=== PATIENT | female | born 1935 | race Caucasian/White ===

== ENCOUNTER 2022-03-24 12:52 | Outpatient (RCR) | payer MEDICARE, SELFPAY | END 2022-05-09 10:29 | disposition home or self-care (01) | LOC: PT.CARL 12:52 | PROVIDERS: Visit Provider Family Medicine | DX: M06.9 Rheumatoid arthritis, unspecified (principal); R27.0 Ataxia, unspecified | CPT/HCPCS: 97110; 97112; 97163 ==

== ENCOUNTER 2023-09-19 13:12 | Outpatient (CLI) | payer MEDICARE, SELFPAY ==
[2023-09-19] MEDS: ABATACEPT IV (13:48)
[2023-09-19] MEDS: SODIUM CHLORIDE 0.9% IV (13:48)
[2023-09-19] MEDS: SODIUM CHLORIDE 0.9% 50ML BAG 50 ML IV (13:48)
[2023-09-19] MEDS: MALTOSE IV (13:48)
[2023-09-19 13:50] VITALS: BP 164/73; PULSE 76; O2SAT 99
[2023-09-19 14:25] VITALS: BP 184/76; PULSE 72
== END 2023-09-19 14:30 | disposition home or self-care (01) ==
LOC: INF 13:13
PROVIDERS: PCP Family Medicine; Visit Provider Internal Medicine
DX: M05.9 Rheumatoid arthritis with rheumatoid factor, unspecified (principal)
CPT/HCPCS: 96365; J0129

== ENCOUNTER 2023-11-13 10:51 | Outpatient (CLI) | payer MEDICARE, SELFPAY ==
[2023-11-13] MEDS: SODIUM CHLORIDE 0.9% IV (11:22)
[2023-11-13] MEDS: SODIUM CHLORIDE 0.9% 50ML BAG 50 ML IV (11:22)
[2023-11-13] MEDS: MALTOSE IV (11:22)
[2023-11-13] MEDS: ABATACEPT IV (11:22)
[2023-11-13 11:27] VITALS: BP 170/76; PULSE 69; RESP 18; O2SAT 97
[2023-11-13 12:20] VITALS: BP 172/72; PULSE 70; RESP 18; O2SAT 97
== END 2023-11-13 12:20 | disposition home or self-care (01) ==
LOC: INF 10:53
PROVIDERS: PCP Family Medicine; Visit Provider Internal Medicine
DX: M05.9 Rheumatoid arthritis with rheumatoid factor, unspecified (principal)
CPT/HCPCS: 96413; J0129

== ENCOUNTER 2023-12-11 10:54 | Outpatient (CLI) | payer MEDICARE, SELFPAY ==
[2023-12-11] MEDS: MALTOSE IV (11:25)
[2023-12-11] MEDS: SODIUM CHLORIDE 0.9% 50ML BAG 50 ML IV (11:25)
[2023-12-11] MEDS: ABATACEPT IV (11:25)
[2023-12-11] MEDS: SODIUM CHLORIDE 0.9% IV (11:25)
[2023-12-11 11:29] VITALS: BP 142/75; PULSE 79; RESP 18; O2SAT 94
[2023-12-11 12:24] VITALS: BP 167/71; PULSE 78; RESP 18; O2SAT 94
== END 2023-12-11 12:24 | disposition home or self-care (01) ==
LOC: INF 10:55
PROVIDERS: PCP Family Medicine; Visit Provider Internal Medicine
DX: M05.9 Rheumatoid arthritis with rheumatoid factor, unspecified (principal)
CPT/HCPCS: 96365; J0129